=== PATIENT | male | born 1970 | race Caucasian/White ===

== ENCOUNTER 2018-10-30 15:32 | Inpatient (IN) | payer BC ==
[~2018-10-30] VITALS: Ht 177.8 cm; Wt 88.6 kg
[2018-10-30 16:46] LABS: BASOPHILS ABSOLUTE AUTO 0.17 K/mm3 (0.00-0.23); BASOPHILS PERCENT AUTO 1 % (0-2); EOSINOPHILS ABSOLUTE AUTO 0.01 K/mm3 (0.00-0.68); EOSINOPHILS PERCENT AUTO 0 % (0-6); Hematocrit 41.9 % (37.0-53.0); Hemoglobin 14.4 g/dL (13.5-17.5); IMMATURE GRAN ABSOLUTE AUTO 0.75 K/mm3 (0.00-0.10); IMMATURE GRAN PERCENT AUTO 3 % (0-1); LYMPHOCYTES ABSOLUTE AUTO 1.22 K/mm3 (0.84-5.20); LYMPHOCYTES PERCENT AUTO 5 % (21-46); MONOCYTES ABSOLUTE AUTO 1.45 K/mm3 (0.16-1.47); MONOCYTES PERCENT AUTO 6 % (4-13); Mean Corpuscular HGB 31.9 pg (26.0-34.0); Mean Corpuscular HGB Conc 34.4 g/dL (31.5-36.5); Mean Corpuscular Volume 93 fL (80-100); Mean Platelet Volume 9.9 fL (9.1-12.4); NEUTROPHILS ABSOLUTE AUTO 21.99 K/mm3 (1.96-9.15); NEUTROPHILS PERCENT AUTO 86 % (41-73); Platelet Count 405 K/mm3 (150-400); RDW Standard Deviation 40.8 fL (35.1-46.3); Red Blood Cell Count 4.51 M/mm3 (4.30-5.90); White Blood Cell Count 25.59 K/mm3 (4.00-11.30)
[2018-10-30 16:54] LABS: Alanine Aminotransfer (ALT/SGP 20 U/L (12-78); Albumin, Blood 1.6 g/dL (3.4-5.0); Albumin/Globulin Ratio 0.2 (0.8-1.8); Alk Phos 69 U/L (50-136); Anion Gap 23 mmol/L (6-16); Aspartate Aminotrans (AST/SGOT 10 U/L (12-37); Blood Urea Nitrogen 14 mg/dL (8-24); Bun/Creatinine Ratio 20.7 (12.0-20.0); CO2, Blood 13 mmol/L (21-32); Calcium, Blood 9.5 mg/dL (8.5-10.1); Chloride, Blood 93 mmol/L (98-108); Creatinine, Blood 0.68 mg/dL (0.60-1.20); Globulin, Blood 8.4 g/dL (2.2-4.0); Glomerular Filtration Rate >60 (60-); Glucose, Blood 470 mg/dL (70-99); Potassium, Blood 2.4 mmol/L (3.5-5.5); Sodium, Blood 129 mmol/L (136-145)
[2018-10-30 18:58] LABS: Magnesium, Blood 2.1 mg/dL (1.6-2.4)
[2018-10-30 19:08] LABS: Albumin, Blood 1.5 g/dL (3.4-5.0); Anion Gap 27 mmol/L (6-16); Blood Urea Nitrogen 10 mg/dL (8-24); Bun/Creatinine Ratio 15.6 (12.0-20.0); CO2, Blood 8 mmol/L (21-32); Calcium, Blood 9.2 mg/dL (8.5-10.1); Chloride, Blood 95 mmol/L (98-108); Creatinine, Blood 0.64 mg/dL (0.60-1.20); Glomerular Filtration Rate >60 (60-); Glucose, Blood 460 mg/dL (70-99); Phosphorus, Blood 3.8 mg/dL (2.5-4.9); Potassium, Blood 2.8 mmol/L (3.5-5.5); Sodium, Blood 130 mmol/L (136-145)
[2018-10-30 20:38] LABS: Albumin, Blood 1.1 g/dL (3.4-5.0); Anion Gap 17 mmol/L (6-16); Blood Urea Nitrogen 13 mg/dL (8-24); Bun/Creatinine Ratio 24.1 (12.0-20.0); CO2, Blood 16 mmol/L (21-32); Calcium, Blood 8.2 mg/dL (8.5-10.1); Chloride, Blood 98 mmol/L (98-108); Creatinine, Blood 0.54 mg/dL (0.60-1.20); Glomerular Filtration Rate >60 (60-); Glucose, Blood 405 mg/dL (70-99); Magnesium, Blood 1.9 mg/dL (1.6-2.4); Phosphorus, Blood 2.5 mg/dL (2.5-4.9); Potassium, Blood 2.7 mmol/L (3.5-5.5); Sodium, Blood 131 mmol/L (136-145)
[2018-10-30] MEDS ORDERED: INSULANPEN SC (20:55)
[2018-10-30] MEDS ORDERED: Novolog100 UNIT/2 SC (20:58)
--- NOTE | 2018-10-30 21:00 | NUR ---
ADMIT NO REPORT RECIEVED. PT ARRIVED TO ICU 15 AT 1900 VIA ER BED. PT IS AWAKE, ALERT, AND ORIENTED UPON ARRIVAL. PT ON ROOM AIR, VITAL SIGNS STABLE. PT WITH LR INFUSING UPON ARRIVAL. DR TSANG HERE TO SEE PT AT 1915. UPDATED WITH LABS/MED GIVEN. NEW ORDERS RECIEVED, SEE ORDER HISTORY. CBG 373. INSULIN GTT STARTED AT 2 UNITS/HR, NS STARTED AT 250 ML/HR, ABX STARTED PER ORDERS. PT WITH GANGRENOUS LEFT FOOT AND BIG TOE. PHOTOS TAKEN AND PLACED IN CHART. PT COMPLAINING OF PAIN IN LEFT FOOT. GROMMET MACHINE OPERATOR MARQUIS NOTIFIED, ORDERS RECIEVED. PT VOIDING WELL WITH URINAL. WILL CONTINUE TO MONITOR.
[2018-10-30 23:31] LABS: Anion Gap 13 mmol/L (6-16); Blood Urea Nitrogen 11 mg/dL (8-24); Bun/Creatinine Ratio 18.1 (12.0-20.0); CO2, Blood 20 mmol/L (21-32); Calcium, Blood 8.2 mg/dL (8.5-10.1); Chloride, Blood 103 mmol/L (98-108); Creatinine, Blood 0.61 mg/dL (0.60-1.20); Glomerular Filtration Rate >60 (60-); Glucose, Blood 215 mg/dL (70-99); Magnesium, Blood 1.9 mg/dL (1.6-2.4); Phosphorus, Blood 1.9 mg/dL (2.5-4.9); Potassium, Blood 2.6 mmol/L (3.5-5.5); Sodium, Blood 136 mmol/L (136-145)
[2018-10-31 04:09] LABS: BASOPHILS ABSOLUTE AUTO 0.08 K/mm3 (0.00-0.23); BASOPHILS PERCENT AUTO 0 % (0-2); EOSINOPHILS ABSOLUTE AUTO 0.07 K/mm3 (0.00-0.68); EOSINOPHILS PERCENT AUTO 0 % (0-6); Hematocrit 31.8 % (37.0-53.0); Hemoglobin 11.4 g/dL (13.5-17.5); IMMATURE GRAN ABSOLUTE AUTO 0.33 K/mm3 (0.00-0.10); IMMATURE GRAN PERCENT AUTO 2 % (0-1); LYMPHOCYTES ABSOLUTE AUTO 1.24 K/mm3 (0.84-5.20); LYMPHOCYTES PERCENT AUTO 7 % (21-46); MONOCYTES PERCENT AUTO 6 % (4-13); Mean Corpuscular HGB 32.4 pg (26.0-34.0); Mean Corpuscular HGB Conc 35.8 g/dL (31.5-36.5); Mean Platelet Volume 9.9 fL (9.1-12.4); NEUTROPHILS ABSOLUTE AUTO 15.12 K/mm3 (1.96-9.15); NEUTROPHILS PERCENT AUTO 85 % (41-73); Platelet Count 301 K/mm3 (150-400); RDW Coefficient Variation 11.6 % (11.7-14.2); Red Blood Cell Count 3.52 M/mm3 (4.30-5.90); White Blood Cell Count 17.84 K/mm3 (4.00-11.30)
[2018-10-31 04:12] LABS: Mean Corpuscular Volume 90 fL (80-100)
[2018-10-31 04:38] LABS: Magnesium, Blood 1.9 mg/dL (1.6-2.4)
[2018-10-31 04:44] LABS: Anion Gap 12 mmol/L (6-16); Blood Urea Nitrogen 10 mg/dL (8-24); Bun/Creatinine Ratio 17.6 (12.0-20.0); CO2, Blood 21 mmol/L (21-32); Calcium, Blood 8.4 mg/dL (8.5-10.1); Chloride, Blood 102 mmol/L (98-108); Creatinine, Blood 0.57 mg/dL (0.60-1.20); Glomerular Filtration Rate >60 (60-); Glucose, Blood 242 mg/dL (70-99); Phosphorus, Blood 1.8 mg/dL (2.5-4.9); Potassium, Blood 2.4 mmol/L (3.5-5.5); Sodium, Blood 135 mmol/L (136-145)
--- NOTE | 2018-10-31 05:38 | NUR ---
SHIFT SUMMARY NO ACUTE CHANGES THIS SHIFT. PT REMAINS AWAKE, ALERT, AND ORIENTED. PT REMAINS ON INSULIN GTT AT 5 UNITS/HR, D5 1/2 NS AT 150 ML/HR, NS TKO. ABX AND K PHOS INFUSING AT THIS TIME. PT ON ROOM AIR. VITAL SIGNS STABLE. PT TAKING GOOD PO FLUID INTAKE. PT DENIES NAUSEA. PT VOIDING WITH URINAL WELL, GOOD URINE OUTPUT THIS SHIFT. GANGRENOUS LEFT FOOT REMAINS UNCHANGED. SEE PHOTOS IN CHART. WILL CONTINUE TO MONITOR AND REPORT OFF TO ONCOMING RN.
--- NOTE | 2018-10-31 10:26 | NUR ---
CARE ASSUMED CARE AND REPORT ASSUMED FROM ALDO WRIGHT. PT A/O X3, LAYING IN BED WATCHING TV. TURNS SELF IN BED. MIV CHANGED FROM D5 1/2 NS TO D5 1/2 NS WITH 40 MEQ POTASSIUM. INSULIN GTT REMAINS INFUSING, TITRATED TO 6 UNITS/HR. ANTIBIOTICS INFUSING. LUNG SOUNDS CLEAR. AFEBRILE. BP ELEVATED WITH SYSOLTIC 170S-180S; WILL MONITOR AND NOTIFY MD IF PAIN CONTROL DOES NOT IMPROVE BP. SPOKE WITH MD TSANG ABOUT DISCONTINUING INSULIN GTT. STATES SHE WANTS TO CONTINUE INFUSION UNTIL 1200 LABS RESULT AND MAKE DECISION AFTER THAT. MD TSANG WANTS TO CONTINUE NPO STATUS UNTIL SEEN BY MD DUKE AND FURTHER DECISION MADE. PT GIVEN PO K+ PER MD REQUEST; WILL MONTIOR FOR NAUSEA. L FOOT GANGRENE AND BLACK WITH FOUL ODOR. FOOT IS ELEVATED ON PILLOW. PEDAL PULSES FOUND WITH DOPPLER. WILL CONTINUE TO MONITOR.
[2018-10-31 12:48] LABS: Vancomycin, Trough 12.5 ug/mL (5.0-10.0)
[2018-10-31 12:52] LABS: Albumin, Blood 1.1 g/dL (3.4-5.0); Anion Gap 10 mmol/L (6-16); Blood Urea Nitrogen 5 mg/dL (8-24); Bun/Creatinine Ratio 11.8 (12.0-20.0); CO2, Blood 24 mmol/L (21-32); Chloride, Blood 97 mmol/L (98-108); Creatinine, Blood 0.42 mg/dL (0.60-1.20); Glomerular Filtration Rate >60 (60-); Glucose, Blood 194 mg/dL (70-99); Magnesium, Blood 1.6 mg/dL (1.6-2.4); Potassium, Blood 2.6 mmol/L (3.5-5.5); Sodium, Blood 131 mmol/L (136-145)
[2018-10-31 13:16] LABS: Source, Urine Clean Catch
[2018-10-31 13:26] LABS: Appearance, Urine Clear (Clear); Bilirubin, Urine Neg (Neg); Blood, Urine 2+ (Neg); Color, Urine Yellow (P-Yellow); Glucose Qualitative, Urine 1+ (Neg); Ketones, Urine Neg (Neg); Leukocyte Esterase, Urine Neg (Neg); Nitrite, Urine Neg (Neg); Protein, Urine 1+ (Neg); Urobilinogen, Urine NORM (Normal); pH, Urine 6.5 (5.0-8.0)
[2018-10-31 13:54] LABS: White Blood Cells, Urine 0-2 /hpf (0-5)
[2018-10-31 13:55] LABS: Bacteria Not Seen /hpf; Squamous Epithelial Cells Not Seen /hpf (Few)
--- NOTE | 2018-10-31 16:55 | NUR ---
INSULIN GTT OFF PT GIVEN HUMALOG PER SLIDING SCALE. INSULIN GTT TURNED OFF AT 1630. FLUID CHANGED TO NS WITH 20 MEQ POTASSIUM AT 1500. WILL CONTINUE TO MONITOR.
--- NOTE | 2018-10-31 17:08 | NUR ---
REASSESSMENT MD DUKE BEDSIDE WITH PT. FOOT REMAINS ELEVATED. FOOT REMAINS BLACK AND IS WEEPING FROM 2 SPOTS. PULSES HEARD WITH DOPPLER. WILL CONTINUE TO MONITOR.
[2018-10-31 18:24] LABS: Anion Gap 9 mmol/L (6-16); Blood Urea Nitrogen 5 mg/dL (8-24); Bun/Creatinine Ratio 9.5 (12.0-20.0); CO2, Blood 23 mmol/L (21-32); Calcium, Blood 7.5 mg/dL (8.5-10.1); Chloride, Blood 97 mmol/L (98-108); Creatinine, Blood 0.53 mg/dL (0.60-1.20); Glomerular Filtration Rate >60 (60-); Glucose, Blood 195 mg/dL (70-99); Phosphorus, Blood 3.8 mg/dL (2.5-4.9); Potassium, Blood 2.9 mmol/L (3.5-5.5); Sodium, Blood 129 mmol/L (136-145)
--- NOTE | 2018-10-31 18:37 | NUR ---
SHIFT SUMMARY INSULIN GTT TURNED OFF AT 1630 AND PT GIVEN DINNER TRAY TONIGHT. SEEN BY LEILANI AND ORTHO CONSULTED. PT IS TO BE NPO AT MIDNIGHT FOR POSSIBLE SURGERY TOMORROW. VSS. NSR 100-120. BP STABLE. TMAX 99.4. POTASSIUM REMAINS LOW THIS AFTERNOON AFTER BEING REPLACED TWO TIMES. PT TURNS SELF IN BED. L FOOT REMAINS BLACK WITH PULSES DOPPLERED. ROXICODONE PO GIVEN X 1. WILL GIVE BEDSIDE, HANDOFF REPORT TO ERNESTO WRIGHT.
--- NOTE | 2018-10-31 19:30 | NUR ---
ASSUMED CARE BEDSIDE REPORT RECIEVED. PT IS AWAKE, ALERT, AND ORIENTED. PT VERBALIZED DEPRESSED FEELING ABOUT PENDING SURGERY TO REMOVE GANGRENOUS LEFT FOOT. REASSURED PT. PT MED PER EMAR FOR LEFT FOOT PAIN. VITAL SIGNS STABLE. PT REPOSITIONING SELF IN BED FOR COMFORT. NS WITH 20 MEQ K INFUSING AT 100 ML/HR, NS TKO. PT TOLERATING PO FLUIDS WELL, POOR APPETITE WITH DINNER. PT USING URINAL TO VOID WELL. LEFT FOOT CLEANED AND DRESSED PER ORDERS. PULSES PRESENT WITH DOPPLER TO LEFT FOOT. WILL CONTINUE TO MONITOR.
[2018-11-01 03:49] LABS: BASOPHILS ABSOLUTE AUTO 0.05 K/mm3 (0.00-0.23); BASOPHILS PERCENT AUTO 0 % (0-2); EOSINOPHILS ABSOLUTE AUTO 0.03 K/mm3 (0.00-0.68); EOSINOPHILS PERCENT AUTO 0 % (0-6); Hematocrit 29.3 % (37.0-53.0); Hemoglobin 10.4 g/dL (13.5-17.5); IMMATURE GRAN ABSOLUTE AUTO 0.21 K/mm3 (0.00-0.10); IMMATURE GRAN PERCENT AUTO 1 % (0-1); LYMPHOCYTES ABSOLUTE AUTO 1.47 K/mm3 (0.84-5.20); LYMPHOCYTES PERCENT AUTO 10 % (21-46); MONOCYTES ABSOLUTE AUTO 1.03 K/mm3 (0.16-1.47); MONOCYTES PERCENT AUTO 7 % (4-13); Mean Corpuscular HGB 32.3 pg (26.0-34.0); Mean Corpuscular HGB Conc 35.5 g/dL (31.5-36.5); Mean Corpuscular Volume 91 fL (80-100); Mean Platelet Volume 9.2 fL (9.1-12.4); NEUTROPHILS ABSOLUTE AUTO 11.75 K/mm3 (1.96-9.15); NEUTROPHILS PERCENT AUTO 81 % (41-73); Platelet Count 280 K/mm3 (150-400); RDW Coefficient Variation 11.7 % (11.7-14.2); RDW Standard Deviation 38.9 fL (35.1-46.3); Red Blood Cell Count 3.22 M/mm3 (4.30-5.90); White Blood Cell Count 14.54 K/mm3 (4.00-11.30)
[2018-11-01 04:07] LABS: Albumin, Blood 0.9 g/dL (3.4-5.0); Anion Gap 13 mmol/L (6-16); Blood Urea Nitrogen 6 mg/dL (8-24); Bun/Creatinine Ratio 12.1 (12.0-20.0); CO2, Blood 20 mmol/L (21-32); Calcium, Blood 7.8 mg/dL (8.5-10.1); Chloride, Blood 101 mmol/L (98-108); Creatinine, Blood 0.49 mg/dL (0.60-1.20); Glomerular Filtration Rate >60 (60-); Glucose, Blood 249 mg/dL (70-99); Magnesium, Blood 1.6 mg/dL (1.6-2.4); Phosphorus, Blood 3.6 mg/dL (2.5-4.9); Potassium, Blood 3.6 mmol/L (3.5-5.5); Sodium, Blood 134 mmol/L (136-145)
--- NOTE | 2018-11-01 05:55 | NUR ---
SHIFT SUMMARY NO ACUTE CHANGES. PT HAS SLEPT THROUGHOUT MOST OF THE SHIFT. PT AWAKENS EASILY AND IS ALERT AND ORIENTED. PT HAS REPOSITIONED SELF IN BED INDEPENDENTLY. VITAL SIGNS HAVE REMAINED STABLE. NS WITH 20 MEQ K INFUSING AT 100 ML/HR. PT VOIDING WELL WITH URINAL. GANGRENOUS WOUND TO LEFT FOOT REMAINS UNCHANGED WITH DRESSING C/D/I. WILL CONTINUE TO MONITOR AND REPORT OFF TO ONCOMING RN.
--- NOTE | 2018-11-01 08:13 | NUR ---
CARE ASSUMED CARE AND REPORT ASSUMED FROM ALDO WRIGHT. PT SLEEPING BUT EASILY AWAKENS. STATES PAIN IS CONTROLLED AT THIS TIME. AFEBRILE THIS AM. NSR, HR 90S AND BP WNL. REQUESTING TO SLEEP LONGER. BLOOD SUGAR TREATED PER ACHS SCALE. L FOOT IS WRAPPED AND DRESSING DRY AT THIS TIME. NS WITH 20 MEQ K INFUSING AT 100 ML/HR PER ORDER. PT TURNS SELF IN BED. CALL LIGHT WITHIN REACH. REMAINS NPO AT THIS TIME. WILL CONTINUE TO MONITOR.
--- NOTE | 2018-11-01 10:48 | NUR ---
TO OR 1030 - PT TO OR WITH 2 OR NURSES. VSS. ZOSYN REMAINS INFUSING WITH TRANSFER.
--- NOTE | 2018-11-01 11:36 | NUR ---
NO PAIN/NAUSEA. CONSENT/BLOOD CONSENT/H&P IN CHART. PAS TO RT LEG/CBG 275. READIED FOR SURGERY.
--- NOTE | 2018-11-01 11:57 | NUR ---
11/01/18 1157 Saumya Campbell PT ON SCHEDULED IV ZOSYN
--- NOTE | 2018-11-01 16:11 | NUR ---
REASSESSMENT NEW ORDER OBTAINED FOR DILAUDID IVP AND DOSE GIVEN. PT STATES HELPED IMPROVE PAIN AND IS NOW RESTING COMFORTABLY. VSS. MIV CONTINUES TO INFUSE. WILL CONTINUE TO MONITOR.
--- NOTE | 2018-11-01 17:34 | NUR ---
TRANSFER REPORT CALLED TO [facility] ON MEDICAL FLOOR. PT TO BE TRANSFERRED TO MEDICAL FLOOR.
--- NOTE | 2018-11-01 18:14 | NUR ---
PT ARRIVED TO UNIT AT APROX 1800 TRANSFER FROM ICU. PT TRANSFERED TO BED USING SLIDER SHEET. PT POD 0 L BKA, DRESSING C/D/I. PT C/O PAIN 12/24, WILL MEDICATE WITH 1MG DILAUDID PER EMAR.
[2018-11-02 04:07] LABS: Hematocrit 29.8 % (37.0-53.0); Hemoglobin 10.4 g/dL (13.5-17.5); Mean Corpuscular HGB 32.5 pg (26.0-34.0); Mean Corpuscular HGB Conc 34.9 g/dL (31.5-36.5); Mean Corpuscular Volume 93 fL (80-100); Mean Platelet Volume 8.9 fL (9.1-12.4); Platelet Count 311 K/mm3 (150-400); RDW Coefficient Variation 11.9 % (11.7-14.2); RDW Standard Deviation 40.4 fL (35.1-46.3)
[2018-11-02 04:30] LABS: Anion Gap 10 mmol/L (6-16); Blood Urea Nitrogen 5 mg/dL (8-24); Bun/Creatinine Ratio 11.7 (12.0-20.0); CO2, Blood 25 mmol/L (21-32); Calcium, Blood 8.1 mg/dL (8.5-10.1); Chloride, Blood 102 mmol/L (98-108); Creatinine, Blood 0.43 mg/dL (0.60-1.20); Glomerular Filtration Rate >60 (60-); Glucose, Blood 180 mg/dL (70-99); Phosphorus, Blood 4.2 mg/dL (2.5-4.9); Sodium, Blood 137 mmol/L (136-145)
--- NOTE | 2018-11-02 04:30 | NUR ---
SHIFT SUMMARY: PT POD #1 FOR L BKA. STUMP SOCK IN PLACE. PAIN MANAGED WITH 1MG DILAUDID Q2 PER EMAR. BRIGIDO PO FLUIDS AND VOIDING ADEQUATE AMT. FLUIDS AND ABX INFUSING. BP AND HR SLIGHTLY ELEVATED T/O SHIFT. RATING PAIN 7-8/10. RESTING MOST OF SHIFT.
--- NOTE | 2018-11-02 17:55 | NUR ---
SUMMARY PATIENT REPORTS ADEQUATE PAIN RELIEF WITH ORDERED MEDS. PATIENT TELLS ME DAY HAS BEEN ROUGH EMOTIONALLY IT HIT HIM HOW DIFFERENT HIS LIFE WILL BE AFTER AMPUTATION.
--- NOTE | 2018-11-03 04:39 | NUR ---
SHIFT SUMMARY: PT POD #2 FOR L BKA. PAIN MANAGED WITH NORCO Q4 AND 1MG DILAUDID PRN PER EMAR. RATING PAIN 6-9/10 ON PAIN SCALE. PT IS BEGINNING TO C/O PHANTOM PAINS. STUMP SOCK IN PLACE. DRINKING AND VOIDING ADEQUATE AMT. GIVING EMOTIONAL SUPPORT PRN.
[2018-11-03 04:59] LABS: Anion Gap 8 mmol/L (6-16); Blood Urea Nitrogen 5 mg/dL (8-24); Bun/Creatinine Ratio 11.1 (12.0-20.0); CO2, Blood 27 mmol/L (21-32); Calcium, Blood 8.2 mg/dL (8.5-10.1); Chloride, Blood 103 mmol/L (98-108); Creatinine, Blood 0.45 mg/dL (0.60-1.20); Glomerular Filtration Rate >60 (60-); Glucose, Blood 178 mg/dL (70-99); Phosphorus, Blood 4.8 mg/dL (2.5-4.9); Potassium, Blood 3.5 mmol/L (3.5-5.5); Sodium, Blood 138 mmol/L (136-145)
--- NOTE | 2018-11-03 07:30 | NUR ---
dilaudid 1 mg ivp given at 0725 pt stated pain is getting better 01/23 now dressing cdi pt is not elev the leg per dr pt has crackles to bases bilat will give is with demonstration and mobilize
--- NOTE | 2018-11-03 10:00 | NUR ---
DR TSANG BY TO SEE PT
--- NOTE | 2018-11-03 10:54 | NUR ---
11/03/18 Patient gave permission to student for treatment on 11/04/18 ELOISE
--- NOTE | 2018-11-03 11:04 | NUR ---
PHYSICAL THERAPY ATTEMPTED TO SEE PT PT EMOTIONAL AT THIS TIME PT TO COME BACK THIS AFTERNOON TO WORK WITH PT I PLACED A PALLATIVE CARE CONSULT PER PT REQ FOR PT HAVING DIFFICULT TIME ADJUSTING
--- NOTE | 2018-11-03 12:45 | NUR ---
pt eating lunch meds given for pain
--- NOTE | 2018-11-03 14:33 | NUR ---
po pain meds given pain currently 01/23 discussed with pt holding iv pain meds for now untill physical therapy comes unless pain gets worse
--- NOTE | 2018-11-03 15:28 | NUR ---
Initial Visit: Consult received for pain and mental distress. Pt is alert, oriented. He is seated in a recliner chair at bedside, he has just worked with physical therapy. Apparently, he was very emotional this morning, spurring the nurse to place consult. Nurse, Wendy, has concerns about depression. Pt reports 6/10 pain, he states that it is increased since he just worked with physical therapy. He states [pain] "has my attention." Medications were given prior to therapy. Pain was reported to Wendy. Pt also complains of moderate anxiety. He states, "I think it's just because I don't know what to expect." Validated feelings. Supportive conversation for distraction from pain. He gets a phone call and speaks with family members. He reports that he has plenty of family support and will not need much outside help in the home. Reviewed conversation with Wendy. Will remain available.
--- NOTE | 2018-11-03 16:00 | NUR ---
pt assisted back into bed two person with fww
--- NOTE | 2018-11-03 16:24 | NUR ---
Spiritual care visit conducted. Patient was lying in bed and alert when I entered the room. I introduced myself and stated what department I am from and patient welcomed me to come in and sit down. Patient openly shared about his amputation, his emotional struggles and his family and friend campo. I explored patient's resources and coping skills, reinforced helpful attitudes and practices, facilitated a life review, explored patient's belief system and explored sources of dignity and meaning. Patient responded well to all interventions and displayed evidence of an elevated mood. Patient expressed gratitude foe the visit and asked me to return, next day.
--- NOTE | 2018-11-03 18:16 | NUR ---
pt eating dinner pain meds given /10 earlier pain was 7/10 when his leg was elev inthe chair po and iv given also gav lisinopril additional dose no improvement noted see vs
--- NOTE | 2018-11-04 06:46 | NUR ---
SUMMARY PT SLEPT QUIETLY TONIGHT. REPORTS ADEQUATE PAIN CONTROL.
--- NOTE | 2018-11-04 07:45 | NUR ---
DR TSANG CALLED RE PT B/P AND ALSO RE TO INCREASE PT PO PAIN MEDS TO START WEANING PT PAIN MEDS PT REPORTS PAIN THIS AM 02/23 DRESSING TO BE CHANGED TODAY
--- NOTE | 2018-11-04 11:23 | NUR ---
RECHECKED B/P AFTER NEW MED NORVASC IMPROVED BLOOD PRESSURE WILL ALSO HOLD PT'S SCHED INSULIN FOR LUNCH PT DID NOT EAT MUCH OF HIS BREAKFAST THIS AM CURRENTLY PAIN IS 3/10
--- NOTE | 2018-11-04 12:21 | NUR ---
DIANE BY TO SEE PT DRESSING CHANGED PT CRYING DR CHUNG CALLED DILAUDID 1MG IVP X1 TO BE GIVEN PT ALSO TO BE SEEN AGAIN BY PT PER ORTHO REQ
--- NOTE | 2018-11-04 13:58 | NUR ---
PO PERCOCET GIVEN OT TO COME BY AND WORK WITH PT
--- NOTE | 2018-11-04 15:20 | NUR ---
Patient gave this manager nursing permission to assist with care on Nov 04, 2018 from 1300 to 1830.
--- NOTE | 2018-11-04 15:22 | NUR ---
Physical Therapy at bedside working with patient.
--- NOTE | 2018-11-04 18:06 | NUR ---
assisted pt oob to bsc for bm earlier 2 tab po pain meds given
--- NOTE | 2018-11-05 04:43 | NUR ---
CONTINUES TO IMPROVE, STATES THAT THERAPY WORKED HIM HARD DURING DAY SHIFT. VOICES UNDERSTANDING OF THE NEW CHALLENGES AND LIFE CHANGES THAT HE WILL BE DEALING WITH. PAIN IS MANAGED WITH CURRENT MEDS. DENIES PAIN, DISCOMFORT, OR FURTHER NEEDS AT THIS TIME. SAFETY MEASURES IN PLACE. WILL GIVE HAND OFF TO ONCOMING SHIFT USING SBAR DURING BEDSIDE REPORT.
--- NOTE | 2018-11-05 07:45 | NUR ---
PT PADDY COOP A/O. STATES IS IN PAIN AT AMP SITE L BKA. MED FOR PAIN. H/R REG, NO MURMER NOTED. NO TELE. LUNGS CLEAR, RESP EASY UNLABORED. ON R.A. BT HYPO, LAST BM YEST. VOIDS PER URINAL. BED IN LOW POSITION, CALL LITE IN REACH, CALLS APPROP. 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
--- NOTE | 2018-11-05 11:14 | NUR ---
DR BHANDARI IN TO SEE PT. OKAY REMOVE IVS. LEAVE OUT. DONE
--- NOTE | 2018-11-05 14:15 | NUR ---
PT STATES DOING OKAY, IN SOME MORE PAIN R/T JUST GETTING UP FROM BED. WAS SOME LIGHT HEADED. BUT OKAY AT THIS POINT . WILL CALL WHEN NEED PAIN MED
--- NOTE | 2018-11-05 16:45 | NUR ---
PT PLEASANT COOP TODAY. VISITIED SEVERAL TIMES TODAY. RESPONDING WELL TO GETTING BACK ON FEET AND BEING WITH HIS DAUGHTER. WANTS TO GO BACK TO WORK ALSO. NEED PAIN MED REGULARLY. NO OTHER CONCERNS AT THIS TIME. BED IN LOW POSITION, CALL LITE IN REACH, CALLS APPROP.
--- NOTE | 2018-11-06 06:20 | NUR ---
CONTINUES TO IMPROVE, STATES THAT THERAPY WORKED HIM HARD AGAIN TODAY. PAIN IS MANAGED WITH CURRENT MEDS. DENIES PAIN, DISCOMFORT, OR FURTHER NEEDS AT THIS TIME. SAFETY MEASURES IN PLACE. WILL GIVE HAND OFF TO ONCOMING SHIFT USING SBAR DURING BEDSIDE REPORT.
--- NOTE | 2018-11-06 09:24 | NUR ---
DR BHANDARI HERE TO SEE PT.
--- NOTE | 2018-11-06 15:21 | NUR ---
PT REPORTED PAIN LIKE A BURNING PAIN LIKE HAVING NERVE PAIN. DISCUSSED WITH DR BHANDARI.
--- NOTE | 2018-11-06 18:02 | NUR ---
SHIFT SUMMARY PT EATING AND DRINKING. PT VOIDING. PT BEEN ASSISTED WITH ADL'S PRN. PT BEEN MED FOR PAIN, DISCUSSED PAIN WITH DR BHANDARI. SEE ORDERS. PT WORKED WITH THERAPY. DISCUSSED THERAPY'S RECCOMENDATION, REPORTS CONT TO [facility] AT THIS TIME. DR SANTOYO. PT DRESSING TO LLE REMAINS CLEAN AND DRY.
--- NOTE | 2018-11-07 04:09 | NUR ---
CONTINUES TO IMPROVE, STATES THAT THERAPY WORKED HIM HARD AGAIN TODAY. PAIN IS MANAGED WITH CURRENT MEDS. MEDISCATED FOR PAIN TWICE THIS SHIFT. DENIES PAIN, DISCOMFORT, OR FURTHER NEEDS AT THIS TIME. SAFETY MEASURES IN PLACE. WILL GIVE HAND OFF TO ONCOMING SHIFT USING SBAR DURING BEDSIDE REPORT.
--- NOTE | 2018-11-07 15:36 | NUR ---
OT IN ROOM. PALLIATIVE CARE RN IN RECENTLY. PT TO GO TO [facility] TODAY APPROX 16:30 PER CONTROL ROOM HELPER WHICH IS ASSISTING WITH DISCHARGE.
--- NOTE | 2018-11-07 15:55 | NUR ---
REPORT GIVEN TO MAXIM AT [facility]
--- NOTE | 2018-11-07 16:24 | NUR ---
PT TO [facility] BY TRANSPORT. BELONGINGS SENT WITH PT. PT REPORTS CONTACTING FAMILY REGARDING BEING DISCHARGED. PAPERWORK ALSO SENT WITH PT INCLUDING SCRIPT.
--- NOTE | 2018-11-07 19:01 | NUR ---
pt preparing to discharge. pt tearfull and distruaght. He ahs called his family and they do not anser the phone he is sad to go to rehab. pt has belongings helped nurse pack him up .pt has clothing that is soiled. obtained some scrubs for patient and a fleese blanket and hat as he was distraugh at wearing a gown. theraputic onversation with pt encourged him to express anger and sadness and fear. Held my hand briefly and cried. we cam up with a plan of contact with our office to get some respite in his stress. will follow up with pt to have them advise SNF therapists of his stress. will suggest psyciatirc care to physician following him.
== END 2018-11-07 16:20 | DRG 853 ==
LOC: ER 15:32 → ICUW 17:14 → SURS 17:14 → ICUW 19:00 → SURS 11-01 18:12
PROVIDERS: Emergency Medicine; Orthopaedic Surgery; ADMIT Internal Medicine
PROC: 0Y6J0Z3 Detachment at Left Lower Leg, Low, Open Approach (ICD-10-PCS; principal; 2018-11-01 11:30)
DX: A40.1 Sepsis due to streptococcus, group B (principal); A48.0 Gas gangrene; E11.10 Type 2 diabetes mellitus with ketoacidosis without coma; E11.52 Type 2 diabetes mellitus with diabetic peripheral angiopathy with gangrene; E87.1 Hypo-osmolality and hyponatremia; E83.39 Other disorders of phosphorus metabolism; E87.6 Hypokalemia; I10 Essential (primary) hypertension; Z91.19 Patient's noncompliance with other medical treatment and regimen; F17.210 Nicotine dependence, cigarettes, uncomplicated; Z79.4 Long term (current) use of insulin
CPT/HCPCS: 36415; 51702; 73630; 80048; 80053; 80069; 80202; 81001; 82010; 82800; 82947; 83036; 83605; 83735; 84100; 84484; 85025; 85027; 87040; 87147; 88307; 90686; 93005; 93010; 96361; 96365; 96368; 97110; 97116; 97162; 97165; 97530; 97535; 99285-25; G0008; J1170; J1650; J1815; J2250; J2270; J2405; J2543; J3010; J3370; J3480; J7030; J7042; J7050; J7060; J7120

== ENCOUNTER 2024-01-23 11:10 | Observation (INO) | payer MEDICARE ==
[~2024-01-23] VITALS: Ht 177.8 cm; Wt 106.4 kg
[2024-01-24 07:43] VITALS: BP 142/64
== END 2024-01-24 13:57 | disposition home or self-care (01) ==
LOC: ER 11:10 → MEDS 11:11 → ENPENDDIS 01-24 10:01 → MEDS 01-24 13:57
PROVIDERS: ADMIT Internal Medicine
DX: G93.41 Metabolic encephalopathy (principal); E87.29 Other acidosis; E87.1 Hypo-osmolality and hyponatremia; E86.1 Hypovolemia; E11.9 Type 2 diabetes mellitus without complications; I10 Essential (primary) hypertension; Z87.891 Personal history of nicotine dependence; Z89.512 Acquired absence of left leg below knee; Z79.4 Long term (current) use of insulin; Z79.899 Other long term (current) drug therapy

== ENCOUNTER → 2024-06-11 | Outpatient (CLI) | payer MEDICARE ==
[~2024-06-11] MED LIST: ALBU90OI INH; AMLO10 PO; HYDCHL25 PO; INSULANPEN SC; KERENDIA10 MG PO; Lisinopril-Hct1 EAC4; MOUNJARO5 MG/0.5 M SC; NOVOLOG FL100 UNIT/3 SC; Novolog100 UNIT/2 SC; ONDA4ODT MM; PRED20 PO; ZESTRIL40 M1 PO
[2024-06-11 22:50] LABS: Bun/Creatinine Ratio 14.6 (12.0-20.0); Calcium, Blood 10.7 mg/dL (8.5-10.1); Creatinine, Blood 0.82 mg/dL (0.60-1.20); Potassium, Blood 2.3 mmol/L (3.5-5.5)
== END ==
LOC: LAB SHORT 16:07 → LAB 16:07
PROVIDERS: Nurse Practitioner Family
DX: I10 Essential (primary) hypertension (principal); E11.59 Type 2 diabetes mellitus with other circulatory complications; E11.69 Type 2 diabetes mellitus with other specified complication; E11.42 Type 2 diabetes mellitus with diabetic polyneuropathy; E11.51 Type 2 diabetes mellitus with diabetic peripheral angiopathy without gangrene
CPT/HCPCS: 80048; 83036

== ENCOUNTER → 2024-06-15 | Outpatient (CLI) | payer MEDICARE ==
[2024-06-15 15:48] LABS: Bun/Creatinine Ratio 12.7 (12.0-20.0); Calcium, Blood 9.2 mg/dL (8.5-10.1); Creatinine, Blood 0.71 mg/dL (0.60-1.20)
== END | disposition home or self-care (01) ==
LOC: LAB SHORT 14:45 → LAB 14:45
PROVIDERS: Nurse Practitioner Family
DX: E87.6 Hypokalemia (principal)
CPT/HCPCS: 80048

== ENCOUNTER → 2024-06-22 | Outpatient (CLI) | payer MEDICARE ==
[2024-06-22 20:58] LABS: Bun/Creatinine Ratio 13.8 (12.0-20.0); Calcium, Blood 8.3 mg/dL (8.5-10.1); Creatinine, Blood 0.73 mg/dL (0.60-1.20); Potassium, Blood 3.2 mmol/L (3.5-5.5)
== END | disposition home or self-care (01) ==
LOC: LAB 16:56 → LAB SHORT 16:56
PROVIDERS: Nurse Practitioner Family
DX: E87.6 Hypokalemia (principal)
CPT/HCPCS: 80048

== ENCOUNTER → 2025-01-21 | Outpatient (CLI) | payer MEDICARE ==
[2025-01-21 20:56] LABS: Bun/Creatinine Ratio 12.9 (12.0-20.0); Calcium, Blood 9.4 mg/dL (8.5-10.1); Creatinine, Blood 0.86 mg/dL (0.60-1.20); Potassium, Blood 2.4 mmol/L (3.5-5.5)
== END ==
LOC: LAB SHORT 16:17 → LAB 16:17 → EDSTATUS 01-21 11:35 → LAB FUT 01-21 11:35
PROVIDERS: Nurse Practitioner Family
DX: E87.6 Hypokalemia (principal)
CPT/HCPCS: 80048

== ENCOUNTER → 2025-01-26 | Outpatient (CLI) | payer MEDICARE | LOC: LAB 16:24 → LAB SHORT 16:24 | DX: E87.6 Hypokalemia (principal) ==

== ENCOUNTER → 2025-05-20 | Outpatient (CLI) | payer MEDICARE ==
[2025-05-20 19:26] LABS: Albumin, Blood 3.2 g/dL (3.4-5.0); Anion Gap 11 mmol/L (3-11); Blood Urea Nitrogen 7 mg/dL (8-24); CO2, Blood 22 mmol/L (21-32); Calcium, Blood 9.1 mg/dL (8.5-10.1); Chloride, Blood 107 mmol/L (98-108); Creatinine, Blood 0.74 mg/dL (0.60-1.20); Glucose, Blood 125 mg/dL (70-99); Phosphorus, Blood 3.1 mg/dL (2.5-4.9); Potassium, Blood 3.9 mmol/L (3.5-5.5); Sodium, Blood 136 mmol/L (136-145)
== END ==
LOC: LAB 16:23 → LAB SHORT 16:23
PROVIDERS: Nurse Practitioner Family
DX: I10 Essential (primary) hypertension (principal); E87.6 Hypokalemia
CPT/HCPCS: 80069